=== PATIENT | female | born 1995 | race Caucasian/White ===

== ENCOUNTER 2017-02-21 21:20 | Emergency (ER) | payer OTHER ==
[~2017-02-21] VITALS: Ht 165.1 cm; Wt 62.7 kg
[2017-02-21 21:25] VITALS: BP 123/80; PULSE 73; RESP 20; O2SAT 98
--- NOTE | 2017-02-21 21:54 | ED.REPORT ---
HPI-Abd Pain F Under 40 Date of Service February 21, 2017 ED Provider: Abelino Soto MD 22 year old female presents to the ER complaining of dysuria onset after taking a bath using a bath bomb last week. She also reports itching, swelling around her genital area since taking the bath. Initially she suspected UTI and treated with home remedies such as cranberry juice without relief. Patient denies fever , vaginal discharge, and pain inside her vagina. She started Monistat yesterday. Her may have herpes, though this is unconfirmed. Nursing Notes Stated Complaint: POSSIBLE ALLERGIC REACTION Chief Complaint: Female Abdominal Pain Nursing Notes Reviewed: Yes Allergies: Coded Allergies: No Known Allergies (Unverified , 02/21/17) Scheduled Acyclovir (Acyclovir) 400 Mg Tablet 400 MG PO 5XD Famciclovir (Famciclovir) 500 Mg Tablet 1,000 MG PO BID General Time Seen by MD: 21:54 Chief Complaint Dysuria Hx Obtained From: Patient Arrived By: Walk-in Sudden in Onset?: No Onset Occurred: 1 week ago Symptom Duration: Since onset Associated with: Denies: Fever, Vaginal discharge Similar Sx Previous: No Past Medical History Past Medical History None reported Past Surgical History Gynecological exploratory surgery Review of Systems Constitutional: Denies: Chills, Fever GI: Denies: Abdominal pain, Nausea, Vomiting Female: Reports: Dysuria, Denies: Hematuria, Vaginal discharge Complete sys rev & neg: except as marked. Physical Exam Initial Vital Signs Vital Signs (First) Date Time Temp Pulse Resp B/P Pulse Ox O2 Delivery O2 Flow Rate FiO2 02/21/17 21:25 35.9 73 20 123/80 98 02/21/17 23:56 Room Air Initial VS: Reviewed Head / Eyes: Atraumatic, Normocephalic Neck: Supple, Non-tender, Full range of motion Extremities: Vascular intact, Neuro intact, No swelling, No tenderness Neurologic: Alert, Oriented, Nonfocal General/Constitutional: Awake, Alert Respiratory / Chest: Breath sounds NL, Breath sounds = bilat, No respiratory distress, No rales, No rhonchi, No wheezing Cardiovascular: Heart rate NL, Regular rhythm, Heart sounds NL, Peripheral circulation NL Abdomen: Soft, Non-tender, No guarding, No rebound, No distention Back: Inspection NL, Non-tender, No CVA tenderness Female Genitourinary: [employer] present, No bleeding, No discharge Primary herpes. Re-Eval/Medical Decision Med Decision/Clinical Course Med Decision/Clinical Course: 22-year-old presents with ulcerative lesions in her left labia, with some scattered lesions on her posterior fornix as well. This appears to be consistent with the primary infection with herpes simplex. Mild groin adenopathy noted. No particular vaginal discharge. V-wet prep is negative. Begun with acyclovir or famciclovir, depending on availability. Discussed with her and , particularly the well-known clinical fact the primary herpes can be acquired years into a monogamous relationship. Source of Hx: Old records Re-Evaluation/Progress #1: Time of Eval: 22:29 Re-Evaluation/Progress Note: Discussed physical examination findings and plan to discharge. Patient is amenable to the plan. Return precautions given. All other questions addressed. Re-Evaluation/Progress #2: Time of Eval: 23:38 Re-Evaluation/Progress Note: is now present at bedside. Counseled Regarding: Diagnosis, Lab results, Need for follow-up, When/why to return to ED Discharge & Departure Primary Impression: Herpes simplex infection of genitourinary system Disposition: Home Discharge Condition All VS Reviewed: Yes Condition: Stable Additional Instructions: This appears to be a primary, initial herpes simplex infection. Culture information will be available in two days. Your head of ict will have access to that result. Begin famciclovir twice daily for 7 days. If the insurance does not cover famciclovir, you may use acyclovir, but it must be taken five times daily for seven days. Tylenol or ibuprofen as needed for pain. Warm sitdown baths can be soothing. You must be assumed to be infectious as long as the lesions are moist and have drainage. Discontinue the Monistat Referrals: NOPCP (PCP) [facility] Attestation Portions of this note were transcribed by Jefferson Godfrey. I, Dr. Soto, personally performed the history, physical exam and medical decision-making; I reviewed and confirmed the accuracy of the information in the transcribed note. Signed by: Haley Hernandez, 02/21/2017 at 23:47 Abelino Soto MD February 21, 2017 21:54 JEFFERSON GODFREY February 21, 2017 22:00
[2017-02-21] MEDS ORDERED: FAMC500T18 PO (22:42)
[2017-02-21] MEDS ORDERED: ACYC400T2 PO (22:43)
[2017-02-21] MEDS ORDERED: Acyclovir 400 mg Tablet PO ONE (22:45)
[2017-02-21 23:56] VITALS: BP 116/68; PULSE 88; RESP 16; O2SAT 97
== END 2017-02-21 23:56 | disposition home or self-care (01) ==
LOC: SED 21:20
DX: A60.00 Herpesviral infection of urogenital system, unspecified (principal)